=== PATIENT | male | born 1995 | race Caucasian/White ===

== ENCOUNTER 2017-09-15 13:12 | Emergency (ER) | payer BC ==
[~2017-09-15] VITALS: Ht 172.7 cm; Wt 77.1 kg
[2017-09-15 13:12] VITALS: BP_SYST 128
[2017-09-15 14:57] LABS: CLARITY/URINE CLEAR (CLEAR); COLOR,URINE YELLOW (YELLOW)
[2017-09-15 14:58] LABS: BILIRUBIN,URINE NEGATIVE (NEGATIVE); BLOOD, URINE NEGATIVE (NEGATIVE); GLUCOSE,URINE NEGATIVE (NEGATIVE); KETONES,URINE NEGATIVE (NEGATIVE); LEUKOCYTE ESTERASE ,URINE NEGATIVE (NEGATIVE); NITRITE, URINE NEGATIVE (NEGATIVE); PROTEIN URINE NEGATIVE (NEGATIVE); UROBILINOGEN,URINE 0.2 (0.2-1.0)
[2017-09-15 15:40] VITALS: BP_SYST 126
== END 2017-09-15 15:40 | disposition home or self-care (01) ==
LOC: SED 13:12
DX: N45.2 Orchitis (principal); R03.0 Elevated blood-pressure reading, without diagnosis of hypertension
CPT/HCPCS: 76870-TC; 81003; 99285

== ENCOUNTER 2018-08-02 23:37 | Emergency (ER) | payer SELFPAY ==
[~2018-08-02] VITALS: Ht 172.7 cm; Wt 81.6 kg
[2018-08-02 23:50] VITALS: BP_SYST 149
[2018-08-03] MEDS ORDERED: LIDOCAINE HCL/PF 1% 10 ML AMPUL INJ ONE (00:15)
[2018-08-03] MEDS ORDERED: DIPH-TET-PERTUS Vaccine 0.5 ML VIAL (ADACEL) I.M. ONE (00:15)
[2018-08-03] MEDS ORDERED: LIDOCAINE/EPI 1% 1:100000 20 ML VIAL INJ ONE (00:22)
[2018-08-03 00:42] VITALS: BP_SYST 149
== END 2018-08-03 00:43 | disposition home or self-care (01) ==
LOC: SED 23:37
DX: S01.112A Laceration without foreign body of left eyelid and periocular area, initial encounter (principal); Y04.0XXA Assault by unarmed brawl or fight, initial encounter; Y93.89 Activity, other specified; Y92.89 Other specified places as the place of occurrence of the external cause; Y99.8 Other external cause status
CPT/HCPCS: 90471; 12011; 90715; 99283; J2001